=== PATIENT | female | born 1955 | race Caucasian/White ===

== ENCOUNTER 2017-04-10 18:03 | Emergency (ER) | payer OTHER ==
[~2017-04-10] VITALS: Ht 167.6 cm; Wt 111.8 kg
[~2017-04-10 18:03] MED LIST: ADULT LOW DOSE81 M1; COREG25 M1; CRESTOR20 MG; FISH OIL 1,2001 EAC3; GINSENG; IMIPRAMINE HCL50 MG; LEVOTHROID,S0.075 MG; NIACIN250 MG; OMEPRAZOLE20 M3; ONE DAILY 50 P1 EACH; PRINIVIL10 MG; SERTRALINE HCL50 MG; WELLBUTRIN SR100 MG PO
[2017-04-10 21:34] VITALS: BP 145/92
== END 2017-04-10 21:42 | disposition home or self-care (01) ==
LOC: EXP 18:03 → EME 18:03 → EXP 21:42
DX: S42.92XA Fracture of left shoulder girdle, part unspecified, initial encounter for closed fracture (principal); W01.0XXA Fall on same level from slipping, tripping and stumbling without subsequent striking against object, initial encounter; E78.5 Hyperlipidemia, unspecified; I10 Essential (primary) hypertension; K21.9 Gastro-esophageal reflux disease without esophagitis; E03.9 Hypothyroidism, unspecified; Z87.891 Personal history of nicotine dependence; Z79.82 Long term (current) use of aspirin
CPT/HCPCS: 73030; 99281; 99283